=== PATIENT | female | born 1995 | race Two or more races ===

== ENCOUNTER → 2021-02-19 14:22 | Outpatient (BNVA) | payer MEDICAID, SELFPAY | PROVIDERS: Visit Provider Advanced Practice Midwife | DX: Z32.01 Encounter for pregnancy test, result positive (principal); E66.01 Morbid (severe) obesity due to excess calories; Z86.79 Personal history of other diseases of the circulatory system | CPT/HCPCS: 81025; 99202 ==

== ENCOUNTER 2022-01-09 07:45 | Emergency (ER) | payer OTHER, SELFPAY ==
[2022-01-09 08:16] VITALS: BP 119/81; PULSE 118; RESP 18; TEMP 37.6; O2SAT 95; BMI 25.9
--- NOTE | 2022-01-09 08:16 | ED.GENADULT ---
HPI - General Adult General Chief complaint: Abdominal Pain Stated complaint: vomiting Time Seen by Provider: 01/09/22 08:09 Source: patient Mode of arrival: ambulatory Limitations: no limitations History of Present Illness HPI narrative: 26-year-old female history of high blood pressure presents to ED for nausea, vomiting, and diarrhea since yesterday 15:00. Patient states multiple rounds of diarrheal illness watery. Patient denies any coughing, chest pain, or shortness of breath. Patient states having some chills. Patient states daughter was sick and was tested positive for flu yesterday. Mother states she has been around her daughter. Patient denies any dysuria, hematuria, flank pain, or abdominal pain. Patient states having some body aches. Related Data Previous Rx's Medication Instructions Recorded oseltamivir 75 mg capsule (Tamiflu) 75 mg PO BID 5 Days #10 cap 01/09/22 Allergies Allergy/AdvReac Type Severity Reaction Status Date / Time No Known Allergies Allergy Verified 01/09/22 08:15 Review of Systems Review of Systems: Nausea, vomiting, diarrhea, body aches, and chills Yes all other systems are reviewed and are negative FOR[facility]LY [facility] Past Medical History Medical History (Updated 01/09/22 @ 10:32 by MIRTHA Estrada) HTN (hypertension) Family History Family History (Updated 02/19/21 @ 14:38 by Asaf Novoa CMA) Paternal Grandfather HTN (hypertension) Diabetes Heart disease Maternal Grandmother HTN (hypertension) Diabetes Heart disease Social History Social History (Updated 02/19/21 @ 14:34 by Asaf Novoa CMA) Alcohol intake: never Patient Tobacco Use Status: Never used Tobacco Use of substances other than those prescribed or required for medical reasons: No Advance Directives: No Advance Directives Information Provided: No Gender identity: Female Physical Exam ED Vital Signs: Vital Signs - 24 hr 01/09/22 08:16 01/09/22 10:31 Temperature 99.7 F 98.5 F Pulse Rate 118 H 102 H Respiratory Rate 18 18 Blood Pressure 119/81 109/67 Pulse Oximetry 95 97 BMI result Body Mass Index 25.9 Const General: cooperative, healthy appearing, comfortable, no acute distress, well developed, alert, awake and Physically active Orientation/consciousness: patient oriented x3 HENMT Head: Yes normal to inspection, Yes No palpable skull fracture present, Yes normocephalic, Yes atraumatic and No abrasion Ears: hearing grossly normal bilaterally, external ears normal, TM's normal bilaterally, EAC's normal, mastoids normal and no periauricular adenopathy Face and sinus: Yes normal facial exam and Yes sinuses nontender Throat: Yes posterior oropharynx normal, Yes tonsils normal and Yes uvula midline Eyes General: appearance normal, both eyes and all related structures Neck Neck: Yes normal visual inspection, Yes full ROM, Yes no lymphadenopathy, Yes no meningeal signs, Yes trachea midline, Yes supple, No anterior neck swelling and No tender Chest Chest palpation & inspection: normal inspection of the chest and normal palpation of entire chest wall Resp Effort & Inspection: normal respiratory effort and able to speak in complete sentences Auscultation: clear to auscultation bilaterally Cardio Jugular venous distension: no JVD Heart sounds: S1 normal heart sound present and S2 normal heart sound present GI Inspection: Yes normal to inspection and No abdominal wall ecchymosis Palpation (GI): Soft to palpation, not firm, nontender, no guarding and not rigid General: No CVA tenderness and Yes no CVA tenderness Back/Spine/Pelvis Back: no CVA tenderness, No CVA tenderness and No back tenderness Skin General skin exam: no rashes or lesions noted and elasticity normal Neuro General: patient oriented x3, gait normal, no meningeal signs and CN's II-XI intact bilaterally Cranial nerves: Yes CN's II-XII intact bilaterally Extrem General: Yes normal to inspection and Yes full ROM Psych Appearance: grossly normal, well kempt and not disheveled Course Course Course Narrative: Patient tachycardic will give Tylenol will do SARs test and lives in fluids. Reevaluation(s) Reevaluation #1: Patient came back positive for influenza. Patient's electrolytes are normal. Patient is hemodynamically stable. Patient is sleeping comfortably in bed. Patient will be discharged with Tamiflu and given days off. Time: 10:27 Medical Decision Making [facility] Narrative Medical decision making narrative: Influenza type a Lab Data Result diagrams: 01/09/22 08:40 01/09/22 08:40 Labs: Lab Results 01/09/22 01/09/22 01/09/22 Range/Units 08:40 08:40 08:40 WBC 12.2 H (4.8-10.8) X10*3/uL RBC 5.53 H (4.20-5.50) X10*6/uL Hgb 14.9 (12.0-16.0) g/dl Hct 47.4 H (37.0-47.0) % MCV 85.7 (80.0-98.0) fL MCH 26.9 L (27.0-33.0) pg MCHC 31.4 (31.0-35.0) g/dl RDW 13.8 (11.0-16.0) % Plt Count 255 (160-400) X10*3/uL MPV 11.9 (9.4-12.3) fL Immature Gran % (Auto) 0.3 (0.0-0.4) % Neut % (Auto) 85.6 H (45-73) % Lymph % (Auto) 4.8 L (20-40) % Carter % (Auto) 9.0 (2-11) % Eos % (Auto) 0.2 (0-4) % Baso % (Auto) 0.1 (0-2) % Lymph # (Auto) 0.6 L (1.2-4.9) X10*3/uL Carter # (Auto) 1.1 (0.1-1.2) X10*3/uL Eos # (Auto) 0.0 (0.0-0.4) X10*3/uL Baso # (Auto) 0.0 (0.0-0.2) X10*3/uL Abs Immat Gran (auto) 0.04 H (0.00-0.03) X10*3/uL Absolute Neuts (auto) 10.5 H (2.0-8.3) x10*3/uL Absolute Nucleated RBC 0.000 (0.0-0.012) X10*3/uL Nucleated RBC % (auto) 0.0 (0.0-0.2) /100WBC Sodium 136 (135-145) mmol/L Potassium 4.0 (3.3-5.1) mmol/L Chloride 105 (96-108) mmol/L Carbon Dioxide 19 L (22-29) mmol/L Anion Gap 16 (12-20) BUN 17 H (9-16) mg/dL Creatinine 0.85 (0.5-1.4) mg/dL Estim Creat Clear Calc 108.6 Estimated GFR > 60 Random Glucose 111 (60-115) mg/dL Calcium 10.1 (8.4-10.2) mg/dL Total Bilirubin 0.4 (0.0-1.0) mg/dL Direct Bilirubin 0.2 (0.0-0.5) mg/dL AST 19 (5-31) U/L ALT 23 (0-31) U/L Alkaline Phosphatase 101 (39-117) U/L Total Protein 9.2 H (6.5-8.0) g/dL Albumin 5.0 (3.5-5.0) g/dL Lipase 18 (8-78) U/L Beta HCG, Quant < 2 mIU/mL Influenza Type A (PCR) POSITIVE A (Negative) Influenza Type B (PCR) NEGATIVE (Negative) RSV RNA Qual (PCR) NEGATIVE (Negative) SARS-CoV-2 RNA (RT-PCR) NEGATIVE (Negative) Discharge Plan Discharge Clinical Impression: Influenza A Patient Disposition: Home, Self-Care Instructions: Influenza (ED) Additional Instructions: You are positive for influenza. Recommend oral hydration, and rest. Tylenol/Motrin can be used for pain relief for fever. Return to the ED immediately for any chest pain, shortness of breath, coughing up blood, weakness, dizziness, or any other concerning symptoms. Please follow-up with primary care provider Prescriptions: New oseltamivir [Tamiflu] 75 mg capsule 75 mg PO BID 5 Days Qty: 10 0RF Stand Alone Forms: Work/School Release Interventions: ED Discharge Assessment Last Done: 01/09/22 11:31 Discharge Date/Time: 01/09/22 11:34 Print Language: Bulgarian
[2022-01-09] MEDS: 0.9 % Sodium Chloride 1,000 ML 999 ML IV ×2 (08:47→10:32)
[2022-01-09] MEDS: Acetaminophen 325 MG TABLET 975 MG PO (08:47)
[2022-01-09] MEDS: ondansetron HCL 4 MG/2 ML VIAL IVPUSH (08:48)
[2022-01-09 08:49] LABS: MANUAL DIFF FLAG NO
[2022-01-09 08:59] LABS: Basophils Percent Auto 0.1 % (0-2); Eosinophils Percent Auto 0.2 % (0-4); Hematocrit 47.4 % (37.0-47.0); Hemoglobin 14.9 g/dl (12.0-16.0); Imm Gran Abs Auto 0.04 X10*3/uL (0.00-0.03); Imm Gran Pct Auto 0.3 % (0.0-0.4); Lymphocytes Absolute Auto 0.6 X10*3/uL (1.2-4.9); Lymphocytes Percent Auto 4.8 % (20-40); Mean Corpuscular HGB Conc 31.4 g/dl (31.0-35.0); Mean Corpuscular Hemoglobin 26.9 pg (27.0-33.0); Mean Corpuscular Volume 85.7 fL (80.0-98.0); Mean Platelet Volume 11.9 fL (9.4-12.3); Monocytes Absolute Auto 1.1 X10*3/uL (0.1-1.2); Neutrophils Absolute Auto 10.5 x10*3/uL (2.0-8.3); Neutrophils Percent Auto 85.6 % (45-73); Platelet Count 255 X10*3/uL (160-400); Red Blood Count 5.53 X10*6/uL (4.20-5.50); Red Cell Distribution Width 13.8 % (11.0-16.0); White Blood Count 12.2 X10*3/uL (4.8-10.8)
[2022-01-09 09:07] LABS: Alanine Aminotransferase 23 U/L (0-31); Alkaline Phosphatase 101 U/L (39-117); Anion Gap 16 (12-20); Aspartate Amino Transferase 19 U/L (5-31); Bilirubin Direct 0.2 mg/dL (0.0-0.5); Bilirubin Total 0.4 mg/dL (0.0-1.0); Blood Urea Nitrogen 17 mg/dL (9-16); Calcium 10.1 mg/dL (8.4-10.2); Carbon Dioxide 19 mmol/L (22-29); Chloride 105 mmol/L (96-108); Creatinine Clr Calc Pharmacy 108.6; Estimated Glomerular Filt Rate > 60; Glucose Random 111 mg/dL (60-115); Lipase 18 U/L (8-78); Sodium 136 mmol/L (135-145); Total Protein 9.2 g/dL (6.5-8.0)
[2022-01-09 09:13] LABS: HCG Quantitative < 2 mIU/mL
[2022-01-09 09:35] LABS: Influenza A PCR POSITIVE (Negative); Influenza B PCR NEGATIVE (Negative); Resp Syncy Virus RNA Qual PCR NEGATIVE (Negative); SARS COV2 PCR INHOUSE NEGATIVE (Negative)
[2022-01-09 10:31] VITALS: BP 109/67; PULSE 102; RESP 18; TEMP 36.9; O2SAT 97
--- NOTE | 2022-01-09 10:33 | PC.NURSE ---
has been sleeping. no vomiting since arrival. additional fluids b/f d/c since pt has yet to produce urine.
--- NOTE | 2022-01-09 11:31 | PC.NURSE ---
patient reports feeling improved at this time, discharged at this time. patient aware of need for follow up
== END 2022-01-09 11:34 | disposition home or self-care (01) ==
PROVIDERS: Physician Assistant; Emergency Provider Emergency Medicine
DX: J10.1 Influenza due to other identified influenza virus with other respiratory manifestations (principal); Z20.822 Contact with and (suspected) exposure to COVID-19; Z79.899 Other long term (current) drug therapy
CPT/HCPCS: 0241U; 80053; 82248; 83690; 84702; 85025; 96361; 96374; 99284; J2405